=== PATIENT | female | born 1995 | race Caucasian/White ===

== ENCOUNTER 2016-10-01 09:21 | Emergency (ER) | payer MEDICAID, OTHER ==
[~2016-10-01] VITALS: Wt 64.0 kg
[~2016-10-01 09:21] MED LIST: BACTDS PO; CEPH-443 PO; NAPR-260 PO
--- NOTE | 2016-10-01 11:23 | RADRPT ---
PROCEDURE: US OB. CLINICAL INDICATION: Vaginal bleeding in . TECHNIQUE: Transabdominal and endovaginal imaging of the uterus is available for review COMPARISON: None available FINDINGS: There is a single intrauterine with a mean sac diameter of 1.1 cm, giving an estimated ges tational age of 5 weeks 6 days by ultrasound criteria. No pole is detected. No subchorionic hemorrhage is identified. There are cystic changes of the endometrium. The ovaries demonstrate a ri ght ovarian corpus luteum cyst. IMPRESSION: Single intrauterine with an estimated gestational age of 5 weeks 6 days by ultrasound crit eria. No pole is identified. There are cystic changes of the endometrium. Close interval fo llow-up is recommended to ensure development of pole, as well as to exclude partial molar preg antonio. RPTAT: HH .Meghan Davis MD, Date Time Electronically viewed and signed by .Meghan Davis MD, on 10/01/2016 11:23 .G/
--- NOTE | 2016-10-01 14:11 | ERD ---
ER Documentation Chief Complaint Date/Time DATE: 10/01/16 TIME: 14:08 Chief Complaint VAG BLEED 4 WEEKS PREG FOLLOWING INTERCOURSE TODAY HPI 21-year-old woman who is about 4-6 weeks on previous ultrasound which confirmed an intrauterine presents with postcoital vaginal bleeding. She denies dysuria, no fevers or chills, no chest pain or shortness of breath. She does have a follow-up appointment scheduled with her fur joiner. ROS All systems reviewed and are negative except as per history of present illness. Medications Home Meds Active Scripts Naproxen* (Naprosyn*) 500 Mg Tablet, 500 MG PO BID Y for PAIN AND/OR INFLAMMATION, #30 TAB Prov:GALLITO GALLOWAY PA-C 07/16/15 Cephalexin* (Keflex*) 500 Mg Capsule, 500 MG PO QID for 7 Days, CAP Prov:GALLITO GALLOWAY PA-C 07/16/15 Sulfamethoxazole-Trimethoprim* (Bactrim* DS) 800-160 Mg Tab, 1 TAB PO BID for 7 Days, TAB Prov:GALLITO GALLOWAY PA-C 07/16/15 Allergies Allergies: Coded Allergies: Penicillins (Verified Allergy, Unknown, HIVES, 02/28/15) PMhx/Soc None Medical and Surgical Hx: pt denies Medical Hx, pt denies Surgical Hx History of Surgery: No Anesthesia Reaction: No Hx Neurological Disorder: No Hx Respiratory Disorders: No Hx Cardiac Disorders: No Hx Psychiatric Problems: No Hx Miscellaneous Medical Probl: No Hx Alcohol Use: No Hx Substance Use: No Hx Tobacco Use: No FmHx Family History: No diabetes Physical Exam Vitals Vital Signs Date Time Temp Pulse Resp B/P Pulse Ox O2 Delivery O2 Flow Rate FiO2 10/01/16 09:23 98.0 71 18 138/74 99 Physical Exam GENERAL: Well-developed, well-nourished, well-hydrated, in no apparent distress , looks nontoxic in appearance HEENT: Moist mucous membranes, pink conjunctiva, no cervical spine tenderness or step-off deformities, no goiter, no jaundice or icterus, extraocular movements intact without pain. No submandibular induration, and no pharyngeal erythema NEURO: Alert and oriented 3, cranial nerves II through XII intact bilaterally, pupils equal round reactive to light, no focal deficits or facial asymmetry, sensation intact distally Strength 5/5 in upper and lower extremities bilaterally CARDIAC: Regular rate and rhythm, no murmurs rubs or gallops LUNGS: Clear bilaterally no wheezing crackles or stridor ABDOMEN: Soft nontender, no guarding, no rigidity, no rebound, no psoas sign no obturator sign. Normoactive bowel sounds SKIN: Warm and dry to touch, no abrasions, contusions, or hematomas, no lacerations, no ecchymosis, no target lesions, and without ulcers EXTREMITIES: No clubbing cyanosis or edema, calves are bilaterally symmetrical, no Homans sign, no popliteal cord sign. Distal pulses equal and bilateral PSYCH: Normal affect without agitation or irritability Procedures/MDM Obstetric pelvic ultrasounds were performed confirming an intrauterine appropriate for patient's dates. Postcoital bleeding can occur and it does not mean she is actively miscarrying although I did tell her given her symptoms she does have a threatened miscarriage. Further management including laboratory testing and urine analysis, even cervical swabs if indicated will be deferred to her fur joiner, who she has an appointment with. Differential diagnoses considered, included but not limited to cervicitis, ovarian torsion, miscarriage, sepsis, stroke, meningitis, encephalitis, pneumonia, appendicitis, cholecystitis, bowel obstruction, pyelonephritis, nephrolithiasis, cystitis, as well as metabolic, hematologic, and electrolyte abnormalities. As well as abscess, cellulitis, fractures, and dislocations. Patient feels much better at this time, and vital signs are normal, symptoms have improved. I did give strict instructions to return to the ED if symptoms continue or worsen, patient will otherwise follow-up with primary care physician. Patient understood instructions and agreed to plan. Departure Diagnosis: Primary Impression: Threatened Condition: Good Patient Instructions: Possible Miscarriage (Threatened ) VIC ALLEN MD Oct 01, 2016 14:11
== END 2016-10-01 11:34 | disposition home or self-care (01) ==
LOC: FTE 09:21
DX: O20.0 Threatened abortion (principal); Z3A.01 Less than 8 weeks gestation of pregnancy
CPT/HCPCS: 76801; 76817

== ENCOUNTER 2018-02-22 10:09 | Emergency (ER) | END 2018-02-22 11:45 | disposition home or self-care (01) ==

== ENCOUNTER 2018-06-05 12:44 | Emergency (ER) | END 2018-06-05 15:43 | disposition home or self-care (01) ==

== ENCOUNTER 2018-06-11 08:20 | Emergency (ER) | END 2018-06-11 09:37 | disposition home or self-care (01) ==